=== PATIENT | female | born 1970 | race Caucasian/White ===

== ENCOUNTER → 2017-02-09 | Outpatient (CLI) | payer OTHER ==
--- NOTE | 2017-02-14 15:07 | SLEEPCENT ---
DATE OF PROCEDURE: 02/09/2017 REFERRING PHYSICIAN: Karen Palacio Nocturnal polysomnography was performed for evaluation of sleep physiology in this patient with a history of excessive somnolence and nonrestorative sleep. 8 hours and 35 minutes of data were reviewed. There were 368 minutes of sleep identified. Sleep latency was prolonged at 86 minutes. Rapid eye movement (REM) latency was prolonged at 277 minutes. Sleep architecture showed fragmentation and poor progression with one REM period later in the study. Overall sleep efficiency was fair at 72.3% but there was a reduction in REM time and an increase in M3. The patient's electrocardiogram showed a stable sinus rhythm with an average heart rate of 90 beats per minute. Heart rate variability was noted surrounding respiratory events. Rate ranged 75 to 115 beats per minute. EEG showed reasonably normal waveforms for awake and sleep with no focal events. There were 174 respiratory events identified of 10 seconds in duration or greater for an apnea/hypopnea index of 28.3. The events were primarily obstructive, not exclusive to sleep stage nor body posture. Arousals from respiratory events were seen 8.5 times per hour and oxygen desaturations were noted into the low 80s. There was also some limb activity noted, particularly early in the study. Limb movement arousal index was 7.2. Many of the limb movements were independent of respiratory events, however, those associated with arousals did appear to be linked to the respiratory disruption. Remaining measures of sleep physiology were normal. IMPRESSION: 1. Obstructive sleep apnea syndrome (G47.33). Apnea/hypopnea index 28.3. 2. Possible periodic limb movement disorder (G47.61). Limb movement arousal index 7.2. RECOMMENDATION: The patient should be encouraged to return to the sleep disorder center for pressure therapy. In the interim, alcohol and sedative avoidance should be practiced and caution exercised during the operation of motor vehicles. Pending response to pressure therapy, consideration may need to be given to the reduction in occurrence or suppression of arousals from limb movements.
== END ==
LOC: M SLEEP 19:43
PROVIDERS: ATTEND Nurse Practitioner Adult Health
DX: G47.33 Obstructive sleep apnea (adult) (pediatric) (principal)

== ENCOUNTER → 2017-03-17 | Outpatient (CLI) | payer OTHER ==
--- NOTE | 2017-03-20 12:48 | SLEEPCENT ---
DATE OF STUDY: 03/17/2017 ORDERING PROVIDER: Karen Palacio NP Nocturnal polysomnography was performed for the titration of pressure therapy in this patient with obstructive sleep apnea syndrome, apnea-hypopnea index of 28. For testing, the patient was fit with a ResMed Mirage FX nasal mask of standard size. 4 cm of water pressure were applied to the circuit, and the lights were extinguished. 6 hours and 45 minutes of data were reviewed. There were 297 minutes of sleep identified. Sleep latency was normal at 13 minutes. Rapid eye movement (REM) sleep was delayed at 238 minutes. Sleep architecture improved with optimal pressure therapy. Overall sleep efficiency was 74.2%. The patient's electrocardiogram (EKG) showed a sinus rhythm with an average heart rate of 88 beats per minute. Electroencephalogram (EEG) showed some coarsening in background. Otherwise, normal waveforms for awake and sleep. No focal events were identified. Respiratory events were found best palliated with continuous positive airway pressure (CPAP) at a pressure of +5, with which pressure the patient slept through REM without respiratory event or oxygen desaturation in the supine posture. There was some limb activity noted in the NG tracing. There were at least 3-4 trains of thiry events, and limb movement arousal index was 19.2. IMPRESSION: 1. Obstructive sleep apnea syndrome (G47.33). 2. Periodic limb movement disorder (G47.61). Limb movement arousal index 19.2. RECOMMENDATION: Nightly use of pressure therapy at 5 cm of water should be sufficient to address the patient's respiratory events. Pending clinical response, interventions to reduce the frequency of arousal from limb activity may be helpful.
== END ==
LOC: M SLEEP 20:00
PROVIDERS: ATTEND Nurse Practitioner Adult Health
DX: G47.33 Obstructive sleep apnea (adult) (pediatric) (principal); G47.61 Periodic limb movement disorder

== ENCOUNTER → 2017-09-27 | Outpatient (CLI) | payer OTHER | LOC: M RAD 13:10 | DX: M79.671 Pain in right foot (principal) | CPT/HCPCS: 73718 ==

== ENCOUNTER → 2020-12-29 | Outpatient (CLI) | payer OTHER ==
--- NOTE | 2020-12-29 10:30 | REP ---
INDICATION: RT STERNOCLAVICULAR JOINT LIGAMENT FX W/ DISPLACEM-MRI AFTER. COMPARISON: None. TECHNIQUE: 2 x 2 mm increments using helical technique and reconstructed in both sagittal and coronal planes. FINDINGS: There is mild asymmetric bilateral sternoclavicular joint space narrowing right greater than left with osteophytosis and again right greater than left. There is no acute fracture, dislocation, or subluxation. Calcifications are seen in the anterior soft tissues at the level of the humeral head bilaterally right greater than left. IMPRESSION: 1. 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 2. Bilateral shoulder calcifications suggestive of chronic calcific rotator cuff tendinitis. Consider shoulder MRI for further evaluation if clinically relevant. <Electronically signed by Eliceo Knox > 12/29/20 [id number]
--- NOTE | 2020-12-29 12:00 | REP ---
INDICATION: PAIN IN RIGHT SHOULDER-CT FIRST. COMPARISON: None. TECHNIQUE: Coronal oblique T1, T2 fat sat, sagittal oblique T2 fat sat, axial T2 fat sat, gradient echo. FINDINGS: Rotator cuff: There is diffuse tendinopathy/tendinitis of the subscapularis, supraspinatus and infraspinatus tendons. No discrete rotator cuff tendon tear is seen. Acromioclavicular joint: There are moderate hypertrophic degenerative changes of the acromioclavicular joint. Acromion: Type 2 Biceps Tendon: In bicipital groove, there is mild surrounding fluid which may indicate mild tenosynovitis. Hill Sach's deformity: None. Deltoid muscle: No abnormal signal. Biceps labral complex: Intact. Labrum: No tear. Cartilage: No defects. Bone marrow: There is mild subchondral marrow edema at the acromioclavicular joint. There is no occult fracture. Joint fluid: No effusion. IMPRESSION: Diffuse tendinopathy/tendinitis of the subscapularis, supraspinatus and infraspinatus tendons. No evidence of rotator cuff tendon tear or labral tear. Moderate hypertrophic degenerative changes acromioclavicular joint. Mild fluid surrounding the biceps tendon in the bicipital groove may indicate mild tenosynovitis. <Electronically signed by Yuniel Alexis > 12/29/20 [id number]
--- NOTE | 2020-12-29 12:08 | REP ---
INDICATION: SCAPULA. COMPARISON: CT today. TECHNIQUE: Multiple sequences obtained in the axial, coronal and sagittal planes. FINDINGS: There is a nondisplaced fracture at the inferior aspect of the right scapula. There is surrounding soft tissue edema. The more superior scapula and other visualized osseous structures demonstrate no abnormal bone marrow signal. No other soft tissue abnormality is seen. IMPRESSION: Nondisplaced fracture inferior right scapula. <Electronically signed by Yuniel Alexis > 12/29/20 [id number]
== END ==
LOC: M RAD 08:58
PROVIDERS: ATTEND Physician Assistant
DX: S42.101A Fracture of unspecified part of scapula, right shoulder, initial encounter for closed fracture (principal); M25.511 Pain in right shoulder; S23.420A Sprain of sternoclavicular (joint) (ligament), initial encounter; Y92.9 Unspecified place or not applicable; Y93.9 Activity, unspecified; Y99.9 Unspecified external cause status

== ENCOUNTER → 2022-10-12 | Outpatient (REF) | payer OTHER | LOC: M SFHCLERA 11:13 | PROVIDERS: ATTEND Student in an Organized Health Care Education/Training Program | DX: R30.0 Dysuria (principal) ==

== ENCOUNTER → 2023-09-26 | Outpatient (REF) | payer OTHER ==
[2023-09-26 18:26] LABS: APPEARANCE, URINE CLEAR (CLEAR); BACTERIA, URINE AUTO NEGATIVE (NEGATIVE); BILIRUBIN, URINE AUTO NEGATIVE (NEGATIVE); BLOOD, URINE BLOOD NEGATIVE (NEGATIVE); COLOR, URINE YELLOW (YELLOW); GLUCOSE, URINE (UA) AUTO 3+ mg/dL (NEGATIVE); KETONE, URINE AUTO NEGATIVE (NEGATIVE); LEUKOCYTE ESTERASE, URINE AUTO NEGATIVE (NEGATIVE); NITRITE, URINE AUTO NEGATIVE (NEGATIVE); PROTEIN, URINE AUTO NEGATIVE (NEGATIVE); RBC, URINE AUTO 0 /HPF (0-3); SPECIFIC GRAVITY URINE AUTO 1.035 (1.002-1.035); SQUAMOUS EPITHELIAL CELL UR AU 0 /HPF (0-6); UROBILINOGEN, URINE AUTO 0.2 mg/dL (0.0-2.0); WBC, URINE AUTO 1 /HPF (0-3)
== END ==
LOC: M SMT 17:00
PROVIDERS: ATTEND Physician Assistant
DX: N30.91 Cystitis, unspecified with hematuria (principal)

== ENCOUNTER → 2025-03-05 | Outpatient (REF) | payer OTHER ==
[2025-03-05 12:45] LABS: BASO # 0.1 10^3/uL (0.0-0.2); BASO % 0.7 % (0.0-1.0); EOS # 0.1 10^3/uL (0.0-0.5); EOS % 1.1 % (0.0-3.0); LYMPH # 2.6 10^3/uL (1.5-5.0); LYMPH % 21.0 % (24.0-44.0); MONO # 0.8 10^3/uL (0.0-0.8); MONO % 6.1 % (2.0-8.0); NEUTROPHILS # 8.7 10^3/uL (1.5-8.5); NEUTROPHILS % 70.6 % (36.0-66.0); PLATELET COUNT, AUTOMATED 313 10^3/uL (150-450)
[2025-03-05 13:04] LABS: ESTIMATED AVERAGE GLUCOSE 217.0 MG/DL (60-110)
[2025-03-05 13:18] LABS: ALT/SGPT 41 U/L (7.0-40); AST/SGOT 35 U/L (<34); CALCIUM LEVEL 9.9 MG/DL (8.5-10.1); CARBON DIOXIDE LEVEL 26 MMOL/L (20-31); CHLORIDE LEVEL 99 MMOL/L (98-107); CREATININE FOR GFR 0.44 MG/DL (0.55-1.30); GLOMERULAR FILTRATION RATE > 90.0 (>51); POTASSIUM SERUM 4.2 MMOL/L (3.5-5.1); SODIUM LEVEL 139 MMOL/L (136-145)
== END ==
LOC: M SFHCLERA 10:22
PROVIDERS: ATTEND Internal Medicine
DX: Z01.818 Encounter for other preprocedural examination (principal)